=== PATIENT | male | born 1995 | race Caucasian/White ===

== ENCOUNTER 2021-12-10 01:15 | Emergency (ER) | payer OTHER ==
[2021-12-10 02:16] LABS: BASOPHIL 0.5 % (0-2); HCT 44.3 % (42.0-52.0); HGB 15.1 g/dl (13.2-18.0); LYMPHOCYTE 20.6 % (15-48); MCH 31.3 pg (25.0-31.0); MCHC 34.1 g/dL (32.0-36.0); MCV 91.7 fL (78.0-100.0); MONOCYTE 12.3 % (0-12); MPV 10.2 fL (6.0-9.5); NEUTROPHIL 65.3 % (41-80); NRBC 0; PLT 220 K/uL (150-400); RBC 4.83 M/uL (4.70-6.00); RDW 12.9 % (11.5-14.0)
[2021-12-10 02:48] LABS: BUN 8 mg/dL (7-18); BUN/CREAT RATIO (CALC) 11.1 RATIO; CHLORIDE 100 mmol/L (98-107); CO2 (BICARBONATE) 28 mmol/L (21-32); CREATININE 0.72 mg/dL (0.67-1.17); GLUCOSE 98 mg/dL (74-106); POTASSIUM 3.5 mmol/L (3.5-5.1)
[2021-12-10 03:57] LABS: AMPHETAMINES POSITIVE (NEGATIVE); BARBITURATES NEGATIVE (NEGATIVE); ECSTASY (MDMA) NEGATIVE (NEGATIVE); MARIJUANA (THC) NEGATIVE (NEGATIVE); METHADONE NEGATIVE (NEGATIVE); OPIATES NEGATIVE (NEGATIVE)
[2021-12-10 03:58] LABS: OXYCODONE NEGATIVE (NEGATIVE)
== END 2021-12-10 04:30 | disposition home or self-care (01) ==
LOC: FER 01:15
PROVIDERS: Emergency Medicine Emergency Medical Services
DX: Z02.79 Encounter for issue of other medical certificate (principal); F11.10 Opioid abuse, uncomplicated; F17.200 Nicotine dependence, unspecified, uncomplicated
CPT/HCPCS: 36415; 80048; 80305; 85025; 99283; G0480; J7030